=== PATIENT | male | born 1940 | race Caucasian/White ===

== ENCOUNTER 2018-11-25 15:40 | Emergency (ER) | payer MEDICARE ==
[2018-11-25] MEDS ORDERED: OCTYL 2-CYANOACRYLATE 1 EACH TP ONE (16:08)
[2018-11-25] MEDS ORDERED: ACETAMINOPHEN 325 MG TAB ONE (16:08)
[2018-11-25] MEDS ORDERED: LIDOCAINE HCL-MPF 1% 2ML VIAL ONE (17:43)
== END 2018-11-25 18:40 | disposition home or self-care (01) ==
LOC: EDH 15:40
DX: S01.01XA Laceration without foreign body of scalp, initial encounter (principal); S01.111A Laceration without foreign body of right eyelid and periocular area, initial encounter; S46.092A Other injury of muscle(s) and tendon(s) of the rotator cuff of left shoulder, initial encounter; I10 Essential (primary) hypertension; F32.9 Major depressive disorder, single episode, unspecified; I48.91 Unspecified atrial fibrillation; Z86.73 Personal history of transient ischemic attack (TIA), and cerebral infarction without residual deficits; Z87.891 Personal history of nicotine dependence; Z88.8 Allergy status to other drugs, medicaments and biological substances; W01.0XXA Fall on same level from slipping, tripping and stumbling without subsequent striking against object, initial encounter; Y93.01 Activity, walking, marching and hiking; Y92.89 Other specified places as the place of occurrence of the external cause; Y99.8 Other external cause status
CPT/HCPCS: 12001; 12011; 70450; 72100; 72125; 73030; 99284; J3490